=== PATIENT | female | born 1960 | race Caucasian/White ===

== ENCOUNTER 2021-03-10 00:09 | Inpatient (IN) ==
[2021-03-10] MEDS ORDERED: SODIUM CHLORIDE 0.9% 1,000 ML IV STA (02:00)
[2021-03-10] MEDS ORDERED: ONDANSETRON 4 MG/2 ML VIAL IV STA (02:00)
[2021-03-10 03:00] LABS: Basophils % 0.2 % (0.0-0.8); Hematocrit 51.2 VOL% (35.7-47.0); Hemoglobin 17.8 GM/DL (12.0-16.0); Immature Granulocytes % 0.9 %; Immature Granulocytes Absolute 0.08 #; Lymphocytes # 0.9 10*3/uL (1.4-4.0); Lymphocytes % 10.6 % (21.3-54.2); Mean Corpuscular HGB Conc 34.8 GM/DL (32-36); Mean Corpuscular Volume 92.9 FL (87-102); Monocytes % 4.2 % (1.7-12.7); Neutrophils % 84.1 % (38.7-73.9); Red Blood Count 5.51 MC/CUMM (3.8-5.5); Red Cell Distribution Width 14.3 % (9.3-17.3); White Blood Count 8.9 T/CUMM (4-12)
[2021-03-10 03:05] LABS: ABG Base Excess -8.4 MMOL/L (-2.5-2.5); ABG HCO3 13.7 MMOL/L (20-26); ABG Oxygen Saturation 95.7 % (95-100); ABG PH 7.393 (7.35-7.45); ABG PO2 72.3 MM HG (80-95); ABG TCO2 14.4 MMOL/L (23-27)
[2021-03-10 03:07] LABS: Platelet Count 69 T/CUMM (130-400)
[2021-03-10 03:20] LABS: Albumin 2.5 G/DL (3.4-5.0); Bilirubin,Total 1.5 MG/DL (0.20-1.00); Calcium 8.5 MG/DL (8.5-10.1); Osmolality,Calculated 279.5 MOS/KG (273-304); Potassium 3.1 MMOL/L (3.5-5.1); Total Protein 5.9 G/DL (6.4-8.2)
[2021-03-10 04:15] LABS: Band Neutrophils 7 % (0-10); Lymphocytes 11 % (20-55); Nucleated Red Blood Cells 1 (0-5); Platelet Estimate Decreased; Segmented Neutrophils 79 % (50-85); Total Cells Counted 100
[2021-03-10] MEDS ORDERED: CALCIUM CARBONATE CHEW 500 MG TABLET PO PRN (04:55)
[2021-03-10] MEDS ORDERED: DEXTROSE 50% 25 GM/50 ML VIAL IV PRN ×2 (04:55→15:21)
[2021-03-10] MEDS ORDERED: MORPHINE 2 MG/1 ML SYRINGE IV PRN (04:55)
[2021-03-10] MEDS ORDERED: hydrALAZINE 20 MG/1 ML VIAL IV PRN (04:55)
[2021-03-10] MEDS ORDERED: ACETAMINOPHEN 325 MG TABLET PO PRN ×2 (04:55→10:00)
[2021-03-10] MEDS ORDERED: NICOTINE 21 MG/24 HR PATCH TRANSDERM PRN (04:55)
[2021-03-10] MEDS ORDERED: ONDANSETRON 4 MG/2 ML VIAL IV PRN ×2 (04:55→10:00)
[2021-03-10] MEDS ORDERED: GLUCAGON 1 MG VIAL IM PRN ×2 (04:55→15:21)
[2021-03-10] MEDS ORDERED: MELATONIN 3 MG TABLET PO PRN ×2 (04:58→08:41)
[2021-03-10] MEDS ORDERED: ENOXAPARIN 40 MG/0.4 ML SYRINGE SUBCUT SCH (05:00)
[2021-03-10] MEDS: SODIUM CHLORIDE 0.45% 1,000 ML IV SCH ×2 (05:15→15:26)
[2021-03-10] MEDS: INSULIN REGULAR 100 UNIT/ML SUBCUT SCH ×9 (05:21→21:18)
[2021-03-10 06:12] LABS: Albumin 2.1 G/DL (3.4-5.0); Bilirubin,Total 0.8 MG/DL (0.20-1.00); Calcium 8.2 MG/DL (8.5-10.1); Osmolality,Calculated 282.5 MOS/KG (273-304); Potassium 3.2 MMOL/L (3.5-5.1); Total Protein 5.7 G/DL (6.4-8.2)
[2021-03-10 06:39] LABS: Ferritin 4299.4 ng/ml (8-252)
[2021-03-10] MEDS ORDERED: CHOLECALCIFEROL 1,000 UNIT TABLET PO SCH (09:00)
[2021-03-10] MEDS ORDERED: DEXAMETHASONE 4 MG/1 ML VIAL IV SCH (09:00)
[2021-03-10] MEDS ORDERED: diphenhydrAMINE 50 MG/1 ML VIAL IV PRN ×2 (10:00)
[2021-03-10] MEDS ORDERED: methylPREDNISolone SOD SUC 125 MG/2 ML VIAL IV PRN (10:00)
[2021-03-10] MEDS ORDERED: MECLIZINE 25 MG TABLET PO PRN (10:00)
[2021-03-10] MEDS: CETIRIZINE 10 MG TABLET PO SCH (10:29)
[2021-03-10] MEDS: ZINC GLUCONATE 50 MG TABLET PO SCH (10:29)
[2021-03-10] MEDS: CHOLECALCIFEROL 5,000 UNIT TABLET PO SCH (10:29)
[2021-03-10] MEDS: FAMOTIDINE 20 MG TABLET PO SCH ×2 (10:30→21:17)
[2021-03-10] MEDS: ASCORBIC ACID 500 MG TABLET PO SCH ×2 (10:30→21:17)
[2021-03-10] MEDS ORDERED: CASIRIVIMAB/IMDEVIMAB 1,200 MG in SODIUM CHLORIDE 0.9% 100 ML IV ONE (11:00)
[2021-03-10] MEDS ORDERED: ENOXAPARIN 60 MG/0.6 ML SYRINGE ONE (19:18)
[2021-03-10] MEDS: ENOXAPARIN 100 MG/ML SYRINGE SUBCUT SCH (19:35)
[2021-03-10] MEDS: MELATONIN 3 MG TABLET PO SCH (21:18)
[2021-03-11] MEDS: POTASSIUM CHLORIDE 20 MEQ TABLET PO PRN ×6 (00:05→17:37)
[2021-03-11] MEDS: INSULIN REGULAR 100 UNIT/ML SUBCUT SCH ×6 (00:40→21:50)
[2021-03-11] MEDS: SODIUM CHLORIDE 0.45% 1,000 ML IV SCH ×4 (01:00→23:00)
[2021-03-11 05:47] LABS: Basophils % 0.3 % (0.0-0.8); Hematocrit 45.5 VOL% (35.7-47.0); Immature Granulocytes % 0.9 %; Immature Granulocytes Absolute 0.07 #; Lymphocytes # 0.7 10*3/uL (1.4-4.0); Mean Corpuscular HGB Conc 35.2 GM/DL (32-36); Mean Corpuscular Volume 91.5 FL (87-102); Mean Platelet Volume 12.3 FL (9.6-12.0); Neutrophils % 86.8 % (38.7-73.9); Platelet Count 67 T/CUMM (130-400); Red Blood Count 4.97 MC/CUMM (3.8-5.5); Red Cell Distribution Width 13.9 % (9.3-17.3); White Blood Count 7.4 T/CUMM (4-12)
[2021-03-11] MEDS: ENOXAPARIN 100 MG/ML SYRINGE SUBCUT SCH ×2 (05:57→17:36)
[2021-03-11 06:23] LABS: Calcium 8.3 MG/DL (8.5-10.1); Ferritin 5475.8 ng/ml (8-252); Osmolality,Calculated 265.5 MOS/KG (273-304)
[2021-03-11 06:24] LABS: Band Neutrophils 7 % (0-10); Lymphocytes 12 % (20-55); Platelet Estimate Decreased; Segmented Neutrophils 79 % (50-85); Total Cells Counted 100
[2021-03-11 06:25] LABS: Potassium 2.3 MMOL/L (3.5-5.1)
[2021-03-11] MEDS: POTASSIUM CHLORIDE RIDER 10 MEQ/100 ML PREMIX IV PRN (07:02)
[2021-03-11] MEDS ORDERED: AZITHROMYCIN 250 MG TABLET PO SCH (09:00)
[2021-03-11] MEDS: ASCORBIC ACID 500 MG TABLET PO SCH ×2 (09:23→21:49)
[2021-03-11] MEDS: FAMOTIDINE 20 MG TABLET PO SCH ×2 (09:23→21:50)
[2021-03-11] MEDS: ZINC GLUCONATE 50 MG TABLET PO SCH (09:24)
[2021-03-11] MEDS: DEXAMETHASONE 4 MG/1 ML VIAL IV SCH ×3 (09:24→21:51)
[2021-03-11] MEDS: AZITHROMYCIN INJ 500 MG in SODIUM CHLORIDE 0.9% 250 ML IV SCH (09:25)
[2021-03-11] MEDS: CHOLECALCIFEROL 5,000 UNIT TABLET PO SCH (09:25)
[2021-03-11] MEDS: CETIRIZINE 10 MG TABLET PO SCH (09:25)
[2021-03-11] MEDS: cefTRIAXone 1,000 MG in SODIUM CHLORIDE 0.9% 100 ML IV SCH (12:06)
[2021-03-11] MEDS: MELATONIN 3 MG TABLET PO SCH (21:49)
[2021-03-12] MEDS: INSULIN REGULAR 100 UNIT/ML SUBCUT SCH ×6 (00:15→20:46)
[2021-03-12] MEDS: POTASSIUM CHLORIDE RIDER 10 MEQ/100 ML PREMIX IV PRN (00:16)
[2021-03-12] MEDS: POTASSIUM BICARB EFFERVESCENT 20 MEQ TAB.EFF PO PRN ×3 (01:56→05:56)
[2021-03-12] MEDS: DEXAMETHASONE 4 MG/1 ML VIAL IV SCH ×4 (03:21→20:48)
[2021-03-12] MEDS: ENOXAPARIN 100 MG/ML SYRINGE SUBCUT SCH ×3 (05:05→20:54)
[2021-03-12] MEDS: SODIUM CHLORIDE 0.45% 1,000 ML IV SCH ×2 (06:21→16:41)
[2021-03-12 07:06] LABS: Calcium 8.5 MG/DL (8.5-10.1); Ferritin 6533.3 ng/ml (8-252); Osmolality,Calculated 271.2 MOS/KG (273-304); Potassium 3.5 MMOL/L (3.5-5.1)
[2021-03-12] MEDS: AZITHROMYCIN INJ 500 MG in SODIUM CHLORIDE 0.9% 250 ML IV SCH (09:44)
[2021-03-12] MEDS: FAMOTIDINE 20 MG TABLET PO SCH ×2 (09:46→20:51)
[2021-03-12] MEDS: ASCORBIC ACID 500 MG TABLET PO SCH ×2 (09:46→20:51)
[2021-03-12] MEDS: CETIRIZINE 10 MG TABLET PO SCH (09:46)
[2021-03-12] MEDS: ZINC GLUCONATE 50 MG TABLET PO SCH (09:46)
[2021-03-12] MEDS: CHOLECALCIFEROL 5,000 UNIT TABLET PO SCH (09:46)
[2021-03-12] MEDS: cefTRIAXone 1,000 MG in SODIUM CHLORIDE 0.9% 100 ML IV SCH (10:50)
[2021-03-12] MEDS ORDERED: ALBUTEROL INHALER 18 GM INH PRN (14:36)
[2021-03-12] MEDS: ALBUTEROL INHALER 18 GM INH SCH ×2 (16:25→18:12)
[2021-03-12] MEDS: MELATONIN 3 MG TABLET PO SCH (20:47)
[2021-03-12] MEDS: INSULIN GLARGINE 100 UNIT/ML SUBCUT SCH (20:47)
[2021-03-13] MEDS: INSULIN REGULAR 100 UNIT/ML SUBCUT SCH ×6 (00:47→20:50)
[2021-03-13] MEDS: ALBUTEROL INHALER 18 GM INH SCH ×7 (00:47→23:57)
[2021-03-13] MEDS: DEXAMETHASONE 4 MG/1 ML VIAL IV SCH ×4 (03:00→20:58)
[2021-03-13 06:26] LABS: Basophils % 0.3 % (0.0-0.8); Hematocrit 42.4 VOL% (35.7-47.0); Hemoglobin 14.4 GM/DL (12.0-16.0); Immature Granulocytes % 5.1 %; Immature Granulocytes Absolute 0.32 #; Lymphocytes % 16.7 % (21.3-54.2); Mean Corpuscular Volume 92.4 FL (87-102); Mean Platelet Volume 12.4 FL (9.6-12.0); Monocytes % 5.8 % (1.7-12.7); Neutrophils % 72.1 % (38.7-73.9); Platelet Count 116 T/CUMM (130-400); Red Blood Count 4.59 MC/CUMM (3.8-5.5); Red Cell Distribution Width 13.8 % (9.3-17.3); White Blood Count 6.2 T/CUMM (4-12)
[2021-03-13 06:56] LABS: Band Neutrophils 9 % (0-10); Hypochromasia Slight; Lymphocytes 11 % (20-55); Microcytosis 1+; Segmented Neutrophils 73 % (50-85); Total Cells Counted 100
[2021-03-13 06:57] LABS: Platelet Estimate Decreased
[2021-03-13 07:05] LABS: Albumin 1.9 G/DL (3.4-5.0); Bilirubin,Total 0.9 MG/DL (0.20-1.00); Calcium 8.7 MG/DL (8.5-10.1); Potassium 2.8 MMOL/L (3.5-5.1); Total Protein 5.3 G/DL (6.4-8.2)
[2021-03-13 07:16] LABS: Ferritin 5041.7 ng/ml (8-252)
[2021-03-13] MEDS: ZINC GLUCONATE 50 MG TABLET PO SCH (09:27)
[2021-03-13] MEDS: CHOLECALCIFEROL 5,000 UNIT TABLET PO SCH (09:27)
[2021-03-13] MEDS: CETIRIZINE 10 MG TABLET PO SCH (09:28)
[2021-03-13] MEDS: FAMOTIDINE 20 MG TABLET PO SCH ×2 (09:28→20:57)
[2021-03-13] MEDS: ENOXAPARIN 100 MG/ML SYRINGE SUBCUT SCH ×2 (09:29→20:57)
[2021-03-13] MEDS: cefTRIAXone 1,000 MG in SODIUM CHLORIDE 0.9% 100 ML IV SCH (09:29)
[2021-03-13] MEDS: ASCORBIC ACID 500 MG TABLET PO SCH ×2 (09:29→20:58)
[2021-03-13] MEDS: INSULIN GLARGINE 100 UNIT/ML SUBCUT SCH ×2 (13:01→20:52)
[2021-03-13] MEDS: AZITHROMYCIN INJ 500 MG in SODIUM CHLORIDE 0.9% 250 ML IV SCH (13:02)
[2021-03-13] MEDS: POTASSIUM BICARB EFFERVESCENT 20 MEQ TAB.EFF PO PRN ×3 (13:02→17:16)
[2021-03-13] MEDS: MELATONIN 3 MG TABLET PO SCH (20:57)
[2021-03-14] MEDS: INSULIN REGULAR 100 UNIT/ML SUBCUT SCH ×7 (01:21→20:57)
[2021-03-14] MEDS: DEXAMETHASONE 4 MG/1 ML VIAL IV SCH ×4 (03:34→21:35)
[2021-03-14] MEDS: ALBUTEROL INHALER 18 GM INH SCH ×6 (03:34→22:55)
[2021-03-14 05:58] LABS: Albumin 2.2 G/DL (3.4-5.0); Bilirubin,Total 0.8 MG/DL (0.20-1.00); Calcium 8.9 MG/DL (8.5-10.1); Ferritin 3218.5 ng/ml (8-252); Potassium 3.1 MMOL/L (3.5-5.1); Total Protein 5.9 G/DL (6.4-8.2)
[2021-03-14] MEDS: POTASSIUM BICARB EFFERVESCENT 20 MEQ TAB.EFF PO PRN ×2 (06:48→10:25)
[2021-03-14] MEDS ORDERED: QUEtiapine 25 MG TABLET PO SCH (09:00)
[2021-03-14] MEDS: ZINC GLUCONATE 50 MG TABLET PO SCH (10:25)
[2021-03-14] MEDS: CETIRIZINE 10 MG TABLET PO SCH (10:25)
[2021-03-14] MEDS: ASCORBIC ACID 500 MG TABLET PO SCH ×2 (10:25→21:35)
[2021-03-14] MEDS: FAMOTIDINE 20 MG TABLET PO SCH ×2 (10:26→21:35)
[2021-03-14] MEDS: CHOLECALCIFEROL 5,000 UNIT TABLET PO SCH (10:26)
[2021-03-14] MEDS: ENOXAPARIN 100 MG/ML SYRINGE SUBCUT SCH ×2 (10:26→21:34)
[2021-03-14] MEDS: cefTRIAXone 1,000 MG in SODIUM CHLORIDE 0.9% 100 ML IV SCH (10:26)
[2021-03-14] MEDS: INSULIN GLARGINE 100 UNIT/ML SUBCUT SCH ×2 (10:27→21:34)
[2021-03-14] MEDS: AZITHROMYCIN INJ 500 MG in SODIUM CHLORIDE 0.9% 250 ML IV SCH (11:25)
[2021-03-14] MEDS ORDERED: HALOPERIDOL 5 MG/ML AMP IM ONE (14:35)
[2021-03-14] MEDS: NYSTATIN 500,000 UNIT/5 ML UDCUP SWISH/SWAL SCH ×4 (14:55→21:34)
[2021-03-14] MEDS: QUEtiapine 25 MG TABLET PO SCH (14:56)
[2021-03-14] MEDS ORDERED: HALOPERIDOL 5 MG/ML AMP IM PRN (18:05)
[2021-03-14] MEDS: MELATONIN 3 MG TABLET PO SCH (21:34)
[2021-03-15] MEDS: INSULIN REGULAR 100 UNIT/ML SUBCUT SCH ×6 (00:33→22:11)
[2021-03-15] MEDS: ALBUTEROL INHALER 18 GM INH SCH ×6 (03:15→23:20)
[2021-03-15 05:14] LABS: Basophils # 0.1 10*3/uL (0.0-0.2); Hematocrit 41.7 VOL% (35.7-47.0); Hemoglobin 13.8 GM/DL (12.0-16.0); Immature Granulocytes % 8.5 %; Immature Granulocytes Absolute 0.59 #; Lymphocytes # 1.4 10*3/uL (1.4-4.0); Lymphocytes % 20.5 % (21.3-54.2); Mean Corpuscular HGB Conc 33.1 GM/DL (32-36); Mean Platelet Volume 11.3 FL (9.6-12.0); Monocytes % 7.8 % (1.7-12.7); NRBC # 0.03 10*3/uL; Neutrophils % 62.2 % (38.7-73.9); Platelet Count 169 T/CUMM (130-400); Red Blood Count 4.39 MC/CUMM (3.8-5.5); Red Cell Distribution Width 13.9 % (9.3-17.3); White Blood Count 6.9 T/CUMM (4-12)
[2021-03-15 05:38] LABS: Albumin 2.3 G/DL (3.4-5.0); Bilirubin,Total 1.3 MG/DL (0.20-1.00); Calcium 8.7 MG/DL (8.5-10.1); Ferritin 1801.4 ng/ml (8-252); Osmolality,Calculated 273.8 MOS/KG (273-304); Potassium 2.6 MMOL/L (3.5-5.1); Total Protein 5.6 G/DL (6.4-8.2)
[2021-03-15 05:44] LABS: Band Neutrophils 1 % (0-10); Lymphocytes 17 % (20-55); Segmented Neutrophils 74 % (50-85); Total Cells Counted 100
[2021-03-15 05:45] LABS: Platelet Estimate Normal
[2021-03-15] MEDS ORDERED: QUEtiapine 25 MG TABLET PO SCH (09:00)
[2021-03-15] MEDS: INSULIN GLARGINE 100 UNIT/ML SUBCUT SCH ×2 (09:27→22:11)
[2021-03-15] MEDS: ZINC GLUCONATE 50 MG TABLET PO SCH (09:28)
[2021-03-15] MEDS: NYSTATIN 500,000 UNIT/5 ML UDCUP SWISH/SWAL SCH ×4 (09:28→22:12)
[2021-03-15] MEDS: CHOLECALCIFEROL 5,000 UNIT TABLET PO SCH (09:29)
[2021-03-15] MEDS: QUEtiapine 25 MG TABLET PO SCH (09:29)
[2021-03-15] MEDS: ASCORBIC ACID 500 MG TABLET PO SCH ×2 (09:29→22:12)
[2021-03-15] MEDS: FAMOTIDINE 20 MG TABLET PO SCH ×2 (09:29→22:12)
[2021-03-15] MEDS: POTASSIUM BICARB EFFERVESCENT 20 MEQ TAB.EFF PO PRN (09:30)
[2021-03-15] MEDS: CETIRIZINE 10 MG TABLET PO SCH (09:30)
[2021-03-15] MEDS: DEXAMETHASONE 4 MG/1 ML VIAL IV SCH ×2 (09:31→22:12)
[2021-03-15] MEDS: ENOXAPARIN 100 MG/ML SYRINGE SUBCUT SCH ×2 (09:32→22:11)
[2021-03-15] MEDS: cefTRIAXone 1,000 MG in SODIUM CHLORIDE 0.9% 100 ML IV SCH (09:37)
[2021-03-15] MEDS: AZITHROMYCIN INJ 500 MG in SODIUM CHLORIDE 0.9% 250 ML IV SCH (09:41)
[2021-03-15 10:58] LABS: Basophils # 0.1 10*3/uL (0.0-0.2); Basophils % 0.8 % (0.0-0.8); Hematocrit 39.3 VOL% (35.7-47.0); Hemoglobin 13.2 GM/DL (12.0-16.0); Immature Granulocytes % 8.1 %; Immature Granulocytes Absolute 0.61 #; Lymphocytes # 1.5 10*3/uL (1.4-4.0); Lymphocytes % 19.3 % (21.3-54.2); Mean Corpuscular HGB Conc 33.6 GM/DL (32-36); Mean Corpuscular Volume 94.7 FL (87-102); NRBC # 0.03 10*3/uL; Neutrophils % 62.8 % (38.7-73.9); Platelet Count 167 T/CUMM (130-400); Red Blood Count 4.15 MC/CUMM (3.8-5.5); Red Cell Distribution Width 13.8 % (9.3-17.3); White Blood Count 7.5 T/CUMM (4-12)
[2021-03-15 11:43] LABS: Atypical Lymphocytes Few; Hypochromasia Slight; Lymphocytes 24 % (20-55); Platelet Estimate Adequate; Segmented Neutrophils 72 % (50-85); Total Cells Counted 100
[2021-03-15] MEDS: MELATONIN 3 MG TABLET PO SCH (22:12)
[2021-03-16] MEDS: INSULIN REGULAR 100 UNIT/ML SUBCUT SCH ×6 (00:44→22:36)
[2021-03-16] MEDS: ALBUTEROL INHALER 18 GM INH SCH ×4 (04:03→15:20)
[2021-03-16 05:34] LABS: Albumin 2.2 G/DL (3.4-5.0); Bilirubin,Total 0.6 MG/DL (0.20-1.00); Calcium 8.6 MG/DL (8.5-10.1); Osmolality,Calculated 276.5 MOS/KG (273-304)
[2021-03-16 05:36] LABS: Potassium 2.4 MMOL/L (3.5-5.1)
[2021-03-16] MEDS: POTASSIUM CHLORIDE RIDER 10 MEQ/100 ML PREMIX IV PRN (05:51)
[2021-03-16] MEDS ORDERED: SODIUM CHLORIDE 0.9% 500 ML IV ONE ×2 (07:15→10:26)
[2021-03-16] MEDS: ENOXAPARIN 100 MG/ML SYRINGE SUBCUT SCH ×2 (08:57→21:55)
[2021-03-16] MEDS: INSULIN GLARGINE 100 UNIT/ML SUBCUT SCH ×2 (08:58→22:37)
[2021-03-16] MEDS: FAMOTIDINE 20 MG TABLET PO SCH ×2 (08:59→21:55)
[2021-03-16] MEDS: NYSTATIN 500,000 UNIT/5 ML UDCUP SWISH/SWAL SCH ×5 (08:59→21:55)
[2021-03-16] MEDS: ASCORBIC ACID 500 MG TABLET PO SCH ×2 (08:59→21:55)
[2021-03-16] MEDS: CETIRIZINE 10 MG TABLET PO SCH (08:59)
[2021-03-16] MEDS: QUEtiapine 25 MG TABLET PO SCH (08:59)
[2021-03-16] MEDS: ZINC GLUCONATE 50 MG TABLET PO SCH (08:59)
[2021-03-16] MEDS: CHOLECALCIFEROL 5,000 UNIT TABLET PO SCH (09:30)
[2021-03-16] MEDS: DEXAMETHASONE 4 MG/1 ML VIAL IV SCH (10:23)
[2021-03-16] MEDS: cefTRIAXone 1,000 MG in SODIUM CHLORIDE 0.9% 100 ML IV SCH (10:24)
[2021-03-16] MEDS: POTASSIUM BICARB EFFERVESCENT 20 MEQ TAB.EFF PO PRN ×2 (16:08→21:55)
[2021-03-16] MEDS: MELATONIN 3 MG TABLET PO SCH (21:55)
[2021-03-17] MEDS ORDERED: SODIUM CHLORIDE 0.9% 500 ML IV ONE ×2 (00:30→03:29)
[2021-03-17] MEDS: INSULIN REGULAR 100 UNIT/ML SUBCUT SCH ×7 (00:41→23:54)
[2021-03-17] MEDS: POTASSIUM CHLORIDE 20 MEQ TABLET PO PRN ×4 (00:55→09:30)
[2021-03-17] MEDS: ALBUTEROL INHALER 18 GM INH SCH ×6 (01:06→23:35)
[2021-03-17] MEDS ORDERED: BISACODYL 10 MG SUPP RECTAL PRN (03:28)
[2021-03-17] MEDS: SODIUM CHLORIDE 0.9% 1,000 ML IV SCH ×3 (04:15→12:34)
[2021-03-17 06:34] LABS: Albumin 1.8 G/DL (3.4-5.0); Bilirubin,Total 0.5 MG/DL (0.20-1.00); Calcium 7.6 MG/DL (8.5-10.1); Osmolality,Calculated 278.4 MOS/KG (273-304); Potassium 3.4 MMOL/L (3.5-5.1); Total Protein 3.9 G/DL (6.4-8.2)
[2021-03-17 07:13] LABS: Basophils # 0.1 10*3/uL (0.0-0.2); Basophils % 0.4 % (0.0-0.8); Eosinophils % 0.1 % (0.00-10.9); Hematocrit 20.9 VOL% (35.7-47.0); Immature Granulocytes % 11.3 %; Lymphocytes % 20.3 % (21.3-54.2); Mean Corpuscular HGB Conc 32.5 GM/DL (32-36); Mean Platelet Volume 12.2 FL (9.6-12.0); Monocytes % 7.4 % (1.7-12.7); NRBC # 0.42 10*3/uL; Neutrophils % 60.5 % (38.7-73.9); Red Cell Distribution Width 14.6 % (9.3-17.3)
[2021-03-17 07:14] LABS: Hemoglobin 6.8 GM/DL (12.0-16.0); Platelet Count 244 T/CUMM (130-400); Red Blood Count 2.07 MC/CUMM (3.8-5.5); White Blood Count 19.5 T/CUMM (4-12)
[2021-03-17 07:28] LABS: Band Neutrophils 2 % (0-10); Hypochromasia 1+; Lymphocytes 17 % (20-55); Macrocytosis Slight; Nucleated Red Blood Cells 1 (0-5); Platelet Estimate Adequate; Segmented Neutrophils 74 % (50-85); Total Cells Counted 100
[2021-03-17 07:29] LABS: Polychromasia Slight
[2021-03-17 08:50] LABS: Ferritin 2553.6 ng/ml (8-252)
[2021-03-17] MEDS: DEXAMETHASONE 4 MG/1 ML VIAL IV SCH (09:29)
[2021-03-17] MEDS: ZINC GLUCONATE 50 MG TABLET PO SCH (09:30)
[2021-03-17] MEDS: ASCORBIC ACID 500 MG TABLET PO SCH ×2 (09:30→21:01)
[2021-03-17] MEDS: NYSTATIN 500,000 UNIT/5 ML UDCUP SWISH/SWAL SCH ×4 (09:30→21:01)
[2021-03-17] MEDS: CETIRIZINE 10 MG TABLET PO SCH (09:30)
[2021-03-17] MEDS: CHOLECALCIFEROL 5,000 UNIT TABLET PO SCH (09:30)
[2021-03-17] MEDS: cefTRIAXone 1,000 MG in SODIUM CHLORIDE 0.9% 100 ML IV SCH (09:31)
[2021-03-17] MEDS: FAMOTIDINE 20 MG TABLET PO SCH (09:31)
[2021-03-17] MEDS: INSULIN GLARGINE 100 UNIT/ML SUBCUT SCH (09:32)
[2021-03-17] MEDS: ENOXAPARIN 100 MG/ML SYRINGE SUBCUT SCH (11:27)
[2021-03-17 13:02] LABS: Basophils % 0.2 % (0.0-0.8); Immature Granulocytes % 8.6 %; Immature Granulocytes Absolute 2.09 #; Lymphocytes # 2.4 10*3/uL (1.4-4.0); Lymphocytes % 9.7 % (21.3-54.2); Mean Corpuscular HGB Conc 32.2 GM/DL (32-36); Mean Corpuscular Volume 101.8 FL (87-102); Mean Platelet Volume 11.6 FL (9.6-12.0); Monocytes % 2.7 % (1.7-12.7); NRBC # 0.58 10*3/uL; Neutrophils % 78.8 % (38.7-73.9); Platelet Count 235 T/CUMM (130-400); Red Blood Count 1.71 MC/CUMM (3.8-5.5); Red Cell Distribution Width 14.8 % (9.3-17.3); White Blood Count 24.4 T/CUMM (4-12)
[2021-03-17 13:05] LABS: Hematocrit 17.4 VOL% (35.7-47.0); Hemoglobin 5.6 GM/DL (12.0-16.0)
[2021-03-17] MEDS ORDERED: SODIUM CHLORIDE 0.9% 1,000 ML IV PRN ×2 (13:10→16:05)
[2021-03-17 13:19] LABS: Hypochromasia 1+; Lymphocytes 5 % (20-55); Microcytosis 1+; Platelet Estimate Adequate; Segmented Neutrophils 92 % (50-85); Total Cells Counted 100
[2021-03-17] MEDS ORDERED: PANTOPRAZOLE 40 MG VIAL IV SCH (21:00)
[2021-03-17] MEDS: MELATONIN 3 MG TABLET PO SCH (21:01)
[2021-03-17] MEDS: POTASSIUM CHLORIDE INJ 30 MEQ in SODIUM CHLORIDE 0.9% 1,000 ML IV SCH (21:30)
[2021-03-17 22:27] LABS: Hematocrit 33.8 VOL% (35.7-47.0); Hemoglobin 10.9 GM/DL (12.0-16.0)
[2021-03-17 22:47] LABS: Albumin 1.6 G/DL (3.4-5.0); Bilirubin,Total 1.2 MG/DL (0.20-1.00); Calcium 7.7 MG/DL (8.5-10.1); Osmolality,Calculated 288.4 MOS/KG (273-304); Potassium 4.9 MMOL/L (3.5-5.1); Total Protein 4.1 G/DL (6.4-8.2)
[2021-03-18] MEDS: ALBUTEROL INHALER 18 GM INH SCH ×7 (01:29→21:08)
[2021-03-18] MEDS: INSULIN REGULAR 100 UNIT/ML SUBCUT SCH ×5 (03:56→20:44)
[2021-03-18 09:02] LABS: Basophils % 0.2 % (0.0-0.8); Eosinophils % 0.1 % (0.00-10.9); Hematocrit 35.2 VOL% (35.7-47.0); Hemoglobin 12.3 GM/DL (12.0-16.0); Immature Granulocytes % 10.5 %; Immature Granulocytes Absolute 1.83 #; Lymphocytes # 2.9 10*3/uL (1.4-4.0); Lymphocytes % 16.5 % (21.3-54.2); Mean Corpuscular HGB Conc 34.9 GM/DL (32-36); Mean Corpuscular Volume 90.5 FL (87-102); Mean Platelet Volume 11.7 FL (9.6-12.0); Monocytes % 5.3 % (1.7-12.7); NRBC # 0.58 10*3/uL; Neutrophils % 67.4 % (38.7-73.9); Platelet Count 107 T/CUMM (130-400); Red Blood Count 3.89 MC/CUMM (3.8-5.5); Red Cell Distribution Width 16.7 % (9.3-17.3); White Blood Count 17.4 T/CUMM (4-12)
[2021-03-18 09:25] LABS: Osmolality,Calculated 289.6 MOS/KG (273-304); Potassium 4.9 MMOL/L (3.5-5.1)
[2021-03-18 09:28] LABS: Atypical Lymphocytes Few; Lymphocytes 19 % (20-55); Nucleated Red Blood Cells 2 (0-5); Platelet Estimate Adequate; Segmented Neutrophils 74 % (50-85); Smudge Cells Few; Total Cells Counted 100
[2021-03-18 09:29] LABS: Anisocytosis 2+
[2021-03-18 09:31] LABS: Macrocytosis Slight
[2021-03-18] MEDS: NYSTATIN 500,000 UNIT/5 ML UDCUP SWISH/SWAL SCH ×4 (09:46→21:08)
[2021-03-18] MEDS: DEXAMETHASONE 4 MG/1 ML VIAL IV SCH (09:46)
[2021-03-18] MEDS: ASCORBIC ACID 500 MG TABLET PO SCH ×2 (09:47→21:08)
[2021-03-18] MEDS: CETIRIZINE 10 MG TABLET PO SCH (09:47)
[2021-03-18] MEDS: CHOLECALCIFEROL 5,000 UNIT TABLET PO SCH (09:47)
[2021-03-18] MEDS: PANTOPRAZOLE 40 MG VIAL IV SCH (09:47)
[2021-03-18] MEDS: ZINC GLUCONATE 50 MG TABLET PO SCH (09:47)
[2021-03-18 11:33] LABS: Basophils # 0.1 10*3/uL (0.0-0.2); Basophils % 0.4 % (0.0-0.8); Eosinophils % 0.1 % (0.00-10.9); Hematocrit 30.2 VOL% (35.7-47.0); Hemoglobin 10.5 GM/DL (12.0-16.0); Immature Granulocytes % 8.8 %; Immature Granulocytes Absolute 1.38 #; Lymphocytes # 1.4 10*3/uL (1.4-4.0); Lymphocytes % 9.2 % (21.3-54.2); Mean Corpuscular HGB Conc 34.8 GM/DL (32-36); Mean Corpuscular Volume 90.7 FL (87-102); Mean Platelet Volume 10.8 FL (9.6-12.0); Monocytes % 3.9 % (1.7-12.7); NRBC # 0.44 10*3/uL; Neutrophils % 77.6 % (38.7-73.9); Platelet Count 102 T/CUMM (130-400); Red Blood Count 3.33 MC/CUMM (3.8-5.5); Red Cell Distribution Width 16.3 % (9.3-17.3); White Blood Count 15.7 T/CUMM (4-12)
[2021-03-18 11:42] LABS: PT Patient Result 10.9 SECS (10.5-12.0)
[2021-03-18] MEDS: POTASSIUM CHLORIDE INJ 30 MEQ in SODIUM CHLORIDE 0.9% 1,000 ML IV SCH ×2 (11:50→11:51)
[2021-03-18 11:52] LABS: Band Neutrophils 1 % (0-10); Hypochromasia 1+; Lymphocytes 9 % (20-55); Microcytosis 1+; Nucleated Red Blood Cells 2 (0-5); Segmented Neutrophils 85 % (50-85); Total Cells Counted 100
[2021-03-18 11:53] LABS: Platelet Estimate Adequate
[2021-03-18] MEDS: SODIUM CHLORIDE 0.45% 1,000 ML IV SCH (12:55)
[2021-03-18] MEDS ORDERED: KETOROLAC 15 MG/1 ML VIAL IV PRN (13:57)
[2021-03-18 14:59] LABS: Hematocrit 33.1 VOL% (35.7-47.0); Hemoglobin 11.2 GM/DL (12.0-16.0)
[2021-03-18 20:18] LABS: Hematocrit 29.7 VOL% (35.7-47.0); Hemoglobin 10.2 GM/DL (12.0-16.0)
[2021-03-18] MEDS: MELATONIN 3 MG TABLET PO SCH (21:08)
[2021-03-19] MEDS: ALBUTEROL INHALER 18 GM INH SCH ×6 (02:05→23:14)
[2021-03-19] MEDS: SODIUM CHLORIDE 0.45% 1,000 ML IV SCH ×2 (02:05→14:01)
[2021-03-19 05:57] LABS: Basophils # 0.1 10*3/uL (0.0-0.2); Basophils % 0.3 % (0.0-0.8); Eosinophils % 0.1 % (0.00-10.9); Hematocrit 28.6 VOL% (35.7-47.0); Immature Granulocytes % 5.5 %; Immature Granulocytes Absolute 0.79 #; Lymphocytes # 2.3 10*3/uL (1.4-4.0); Lymphocytes % 16.2 % (21.3-54.2); Mean Platelet Volume 11.2 FL (9.6-12.0); Monocytes % 4.2 % (1.7-12.7); NRBC # 0.27 10*3/uL; Neutrophils % 73.7 % (38.7-73.9); Red Blood Count 3.11 MC/CUMM (3.8-5.5); Red Cell Distribution Width 16.9 % (9.3-17.3); White Blood Count 14.4 T/CUMM (4-12)
[2021-03-19 06:01] LABS: Platelet Count 89 T/CUMM (130-400)
[2021-03-19 06:30] LABS: Osmolality,Calculated 271.8 MOS/KG (273-304); Potassium 4.1 MMOL/L (3.5-5.1)
[2021-03-19 06:41] LABS: Hypochromasia 1+; Lymphocytes 16 % (20-55); Microcytosis 1+; Nucleated Red Blood Cells 1 (0-5); Platelet Estimate Decreased; Segmented Neutrophils 82 % (50-85); Total Cells Counted 100
[2021-03-19] MEDS: INSULIN REGULAR 100 UNIT/ML SUBCUT SCH ×4 (07:39→21:06)
[2021-03-19] MEDS: NYSTATIN 500,000 UNIT/5 ML UDCUP SWISH/SWAL SCH ×4 (09:05→21:06)
[2021-03-19] MEDS: CETIRIZINE 10 MG TABLET PO SCH (09:05)
[2021-03-19] MEDS: CHOLECALCIFEROL 5,000 UNIT TABLET PO SCH (09:05)
[2021-03-19] MEDS: ZINC GLUCONATE 50 MG TABLET PO SCH (09:05)
[2021-03-19] MEDS: ASCORBIC ACID 500 MG TABLET PO SCH ×2 (09:05→21:06)
[2021-03-19] MEDS: DEXAMETHASONE 4 MG/1 ML VIAL IV SCH (09:05)
[2021-03-19] MEDS: PANTOPRAZOLE 40 MG VIAL IV SCH (09:06)
[2021-03-19] MEDS: MELATONIN 3 MG TABLET PO SCH (21:06)
[2021-03-20] MEDS: ALBUTEROL INHALER 18 GM INH SCH ×3 (04:15→10:13)
[2021-03-20] MEDS: SODIUM CHLORIDE 0.45% 1,000 ML IV SCH (05:09)
[2021-03-20] MEDS: INSULIN REGULAR 100 UNIT/ML SUBCUT SCH ×2 (07:18→12:30)
[2021-03-20] MEDS: CHOLECALCIFEROL 5,000 UNIT TABLET PO SCH (08:29)
[2021-03-20] MEDS: CETIRIZINE 10 MG TABLET PO SCH (08:29)
[2021-03-20] MEDS: NYSTATIN 500,000 UNIT/5 ML UDCUP SWISH/SWAL SCH ×2 (08:29→12:30)
[2021-03-20] MEDS: ZINC GLUCONATE 50 MG TABLET PO SCH (08:29)
[2021-03-20] MEDS: ASCORBIC ACID 500 MG TABLET PO SCH (08:29)
[2021-03-20] MEDS: PANTOPRAZOLE 40 MG VIAL IV SCH (08:30)
[2021-03-20] MEDS: DEXAMETHASONE 4 MG/1 ML VIAL IV SCH (08:30)
[2021-03-20 10:38] LABS: Basophils % 0.1 % (0.0-0.8); Eosinophils % 0.1 % (0.00-10.9); Hematocrit 31.9 VOL% (35.7-47.0); Hemoglobin 10.7 GM/DL (12.0-16.0); Immature Granulocytes % 1.9 %; Immature Granulocytes Absolute 0.27 #; Lymphocytes # 1.2 10*3/uL (1.4-4.0); Lymphocytes % 8.7 % (21.3-54.2); Mean Corpuscular HGB Conc 33.5 GM/DL (32-36); Mean Corpuscular Volume 94.4 FL (87-102); Mean Platelet Volume 10.7 FL (9.6-12.0); Monocytes % 2.7 % (1.7-12.7); NRBC # 0.04 10*3/uL; Neutrophils % 86.5 % (38.7-73.9); Platelet Count 101 T/CUMM (130-400); Red Blood Count 3.38 MC/CUMM (3.8-5.5); Red Cell Distribution Width 16.3 % (9.3-17.3); White Blood Count 14.3 T/CUMM (4-12)
[2021-03-20 10:57] LABS: Hypochromasia 1+; Microcytosis 1+; Platelet Estimate Decreased
[2021-03-20 11:59] LABS: Ferritin 984.8 ng/mL (8-252)
[2021-03-20 12:14] VITALS: BP 136/77
== END 2021-03-20 13:55 | DRG 177 ==
LOC: SUATTDRO → N.ED 00:09 → SUATTDRO 06:14 → N.EDINP 06:14 → N.2E 21:48 → N.ICU 03-17 17:09 → N.2E 03-18 15:52
PROVIDERS: ADMIT Internal Medicine; ATTEND Internal Medicine